=== PATIENT | female | born 1950 | race Caucasian/White ===

== ENCOUNTER → 2021-05-05 | Outpatient (CLI) | payer MEDICARE ==
--- NOTE | 2021-05-05 15:26 | US ---
EXAMINATION TYPE: US pelvic limited DATE OF EXAM: 05/05/2021 COMPARISON: NONE CLINICAL HISTORY: M39.0 UTI. recurrent uti, calculate volume post void TECHNIQUE: Transabdominal (TA). EXAM MEASUREMENTS: Bladder: 10.7 x 9.7 x 7.3 cm Bladder volume: 757.7 cm Post Void: 5.0 x 4.8 x 4.2 cm Post Void volume: 4.8 cm 1. Bladder: bladder diverticula. No masses or thick wall seen. 2. Urinary jets seen: Yes 3. Normal post void residual: yes IMPRESSION: Unremarkable urinary bladder.
== END | disposition home or self-care (01) ==
LOC: RADUSWWP 14:14
PROVIDERS: ATTEND Family Medicine
DX: N39.0 Urinary tract infection, site not specified (principal)
CPT/HCPCS: 76857

== ENCOUNTER → 2023-06-07 | Outpatient (CLI) | payer MEDICARE, OTHER ==
[~2023-06-07] MED LIST: REGADENOSON 0.4 MG/5 ML SYRINGE IV PRN
--- NOTE | 2023-06-07 12:43 | NM ---
EXAMINATION TYPE: NM stress lexiscan cardiolite DATE OF EXAM: 06/07/2023 COMPARISON: NONE CLINICAL INDICATION: Female, 72 years old with history of N39.41 urge incontinence; TECHNIQUE: After the intravenous administration of 9.33 mCi Tc 99m Sestamibi - Cardiolite resting SP ECT images acquired 45 minutes post injection. The patient received 0.4mg Lexiscan, 24.7 mCi Tc 99m Sestamibi - Stress images obtained [address] injection FINDINGS: Review of stress and rest SPECT images demonstrates no distinct perfusion abnormality. Gated analysi s shows normal wall motion with an estimated left ventricular ejection fraction of 51 %. IMPRESSION: No scintigraphic evidence for reversible ischemia.
--- NOTE | 2023-06-07 15:03 | CA ---
Transthoracic Echo Report Name: Mariela Raya Age: 72 Gender: F : 1950 Exam Date: 06/07/2023 09:07 Exam Location: [facility] Ht (in): 62 Wt (lb): 186 Ordering Physician: Rafael Cuba DO Attending/Referring Phys: Music Copyist Liliana Puente RDCS Procedure CPT: Indications: N39.41 urge incontinence, Chest pain, unspecified Cardiac Hx: Technical Quality: Good Contrast 1: Total Dose (mL): Contrast 2: Total Dose (mL): MEASUREMENTS (Male / Female) Normal Values 2D ECHO LV Diastolic Diameter PLAX 3.7 cm 4.2 - 5.9 / 3.9 - 5.3 cm LV Systolic Diameter PLAX 2.6 cm IVS Diastolic Thickness 1.0 cm 0.6 - 1.0 / 0.6 - 0.9 cm LVPW Diastolic Thickness 0.9 cm 0.6 - 1.0 / 0.6 - 0.9 cm LV Relative Wall Thickness 0.5 RV Internal Dim ED PLAX 2.5 cm LA Systolic Diameter LX 2.7 cm 3.0 - 4.0 / 2.7 - 3.8 cm LV Diastolic Volume MOD 4C 74.4 cm??? LV Systolic Volume MOD 4C 40.4 cm??? LV Ejection Fraction MOD 4C 45.6 % LV Cardiac Index MOD 4C 1196.8 cm???/min???m??? LV Diastolic Length 4C 6.6 cm LV Systolic Length 4C 5.2 cm LV Diastolic Volume MOD 2C 77.5 cm??? LV Systolic Volume MOD 2C 39.1 cm??? LV Ejection Fraction MOD 2C 49.6 % LV Cardiac Index MOD 2C 1354.0 cm???/min???m??? LV Diastolic Length 2C 7.3 cm LV Systolic Length 2C 6.0 cm LA Volume 44.4 cm??? 18 - 58 / 22 - 52 cm??? M-MODE Aortic Root Diameter MM 2.8 cm MV E Point Septal Separation 0.4 cm AV Cusp Separation MM 2.0 cm DOPPLER AV Peak Velocity 135.3 cm/s AV Peak Gradient 7.3 mmHg MV Area PHT 4.0 cm??? Mitral E Point Velocity 102.5 cm/s Mitral A Point Velocity 97.1 cm/s Mitral E to A Ratio 1.1 MV Deceleration Time 190.9 ms MV E' Velocity 7.6 cm/s Mitral E to MV E' Ratio 13.4 TR Peak Velocity 213.7 cm/s TR Peak Gradient 18.3 mmHg Right Ventricular Systolic Press 22.8 mmHg FINDINGS Left Ventricle Left ventricular ejection fraction is estimated at 55-60 %. Normal LV cavity size. Left ventricular wall thickness mildly increased. Left ventricular wall thickness normal. Right Ventricle Normal right ventricular size and function. Right ventricular systolic pressure within normal limits. Right Atrium Normal right atrial size. Left Atrium Normal left atrial size. Mitral Valve Structurally normal mitral valve. No mitral stenosis, regurgitation or prolapse. Aortic Valve Trileaflet aortic valve. Thickened aortic valve without stenosis. Tricuspid Valve Structurally normal tricuspid valve. Trace to mild tricuspid regurgitation. Pulmonic Valve Structurally normal pulmonic valve. Trace pulmonic regurgitation. Pericardium Normal pericardium. Aorta Normal size aortic root and proximal ascending aorta. CONCLUSIONS Normal LV size and systolic function. LVEF is estimated at 60%. Mild concentric LVH No obvious reason wall motion abnormality. No significant diastolic dysfunction. No significant valvular heart disease No prior echo to compare with Previewed by: Dr Beto Tovar (Electronically Signed) Final Date: 07 June 2023 15:01
--- NOTE | 2023-06-07 15:14 | CA ---
Lexiscan Nuclear Stress Test Report Name: Mariela Raya Exam Date: 06/07/2023 10:20 Exam Location: [facility] Ht (in): 62 Wt (lb): 186 BSA: 1.85 Ordering Phys: Rafael Cuba DO Referring Phys: STEVE,, Technologist: LEONIDES,, Age: 72 Gender: F : 1950 Procedure CPT: Indications: N39.41 urge incontinence ICD-10 Codes: Patient History: Chest pain Medications: Meds past 24 hrs: Pretest Chest Pain: STRESS TEST Lexiscan Protocol Exercise Duration (min:sec): 01:[address] Depressions (mm): Angina Score: West Score: Resting HR (bpm): 68 Peak HR (bpm): 92 Resting BP (mmHg): 147 / 87 Peak BP (mmHg): 153 / 83 MPHR: 146 Target HR: 124 % MPHR: 63 METS: 1.0 Total Dose: Peak Dose: Atropine: Double Product: 20300 BP Response: Stress Termination: INFUSION COMPLETE Stress Symptoms: HEADACHE Stress Summary: ECG ANALYSIS Resting ECG: Normal sinus rhythm and no significant ST or T- wave changes, normal axis and no blocks. Heart rate 67 beats a minute Stress ECG: EKG obtained after Lexiscan infusion shows sinus rhythm with no significant ST or T-wave changes diagnostic for ischemia heart rate 87 beats a minute CONCLUSIONS No evidence of ischemia by ST segment analysis on 12-lead EKG with Lexiscan infusion. No arrhythmias were noted during the study. Please refer to the radiology report for nuclear portion of the study. Dr Beto Tovar (Electronically Signed) Final Date: 07 June 2023 15:13
== END | disposition home or self-care (01) ==
LOC: RADNMMAIN 08:37
PROVIDERS: ATTEND Family Medicine
DX: I35.0 Nonrheumatic aortic (valve) stenosis (principal); I36.1 Nonrheumatic tricuspid (valve) insufficiency; I37.1 Nonrheumatic pulmonary valve insufficiency; N39.41 Urge incontinence; R07.9 Chest pain, unspecified
CPT/HCPCS: 93017; 93306; 78452; A9500; J2785